=== PATIENT | female | born 2005 | race Caucasian/White ===

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

== ENCOUNTER 2023-07-07 17:06 | Outpatient (CLI) | payer MEDICAID, SELFPAY ==
[2023-07-07 17:37] VITALS: BP 128/80; PULSE 79; TEMP 36.8
[2023-07-07 17:41] VITALS: PULSE 76; O2SAT 99
[2023-07-07 17:43] VITALS: BMI 34.2
[2023-07-07 17:46] VITALS: PULSE 92; O2SAT 99
[2023-07-07 18:33] LABS: ROM Internal Control Test YES-OK TO RESULT pt. (Internal QC); ROM Patient Test Negative (Negative); Record Kit Lot#, ROM+ K1409
[2023-07-07 19:42] VITALS: BP 133/88; PULSE 88
[2023-07-07] MEDS: Acetaminophen 500 MG Tablet 1000 MG PO (20:31)
--- NOTE | 2023-07-13 02:12 | OB.TRI.NOTE ---
HPI - General General Date of Service: 07/07/23 HPI Narrative GABY MAYA, is a 18 F who presents with ctxs. Maternal Data Information MITCHEL Calculator Estimated Delivery Date Method Current WG Current Estimate 07/12/23 Manual 40w 1d Gestational age: 39&2 PFSH PFSH Medical History (Updated 07/13/23 @ 02:[address] Jose Mercado MD) Anemia Anxiety Depression Family history of hearing loss at age younger than 7 years PTSD (post-traumatic stress disorder) Home Medications vit no.95-ferrous fumarate 28 mg-folic acid 800 mcg tablet 1 tab PO DAILY 07/08/23 [History Last Taken Unknown] acetaminophen 500 mg tablet 1,000 mg (2 x 500 mg) PO Q6H PRN PRN Pain 1-10 Or Fever #0 tabs 07/10/23 [Rx Last Taken Unknown] ibuprofen 600 mg tablet 600 mg PO Q6H PRN PRN Pain Score 1-3 #0 tabs 07/10/23 [Rx Last Taken Unknown] Allergy/AdvReac Type Severity Reaction Status Date / Time No Known Allergies Allergy Verified 07/08/23 06:02 Social History Smoking Status: Current every day smoker History 1 Elective abortions Hx Para 1 Spontaneous abortions Hx # Term Pregnancies Ectopic pregnancies Hx # Pregnancies Multiple births # of living children 1 NST FHR Rate Baby A Baseline: 120 Variability:: Moderate Accelerations:: 15 x 15 Decelerations:: Variable Uterine Activity:: Irregular but Q2 minutes at times Assessment & Plan (1) False labor: PLAN: Plan Reactive NST
== END 2023-07-07 21:43 | disposition home or self-care (01) ==
LOC: WPOUT 17:15 → WP 17:16
PROVIDERS: Visit Provider Obstetrics & Gynecology
DX: O47.9 False labor, unspecified (principal); Z3A.00 Weeks of gestation of pregnancy not specified
CPT/HCPCS: 59025; 59050 ×2; 84112; G0378 ×2; 99221

== ENCOUNTER 2023-07-08 06:08 | Inpatient (IN) | payer MEDICAID, SELFPAY ==
[2023-07-08] VITALS (69 sets, daily range): BP systolic 111–146; BP diastolic 55–92; PULSE 62–171; RESP 14–16; TEMP 36.4–37.3; O2SAT 87–100; BMI 34.2
[2023-07-08] MEDS: LACTATED RINGERS 500 ML 999 ML IV (06:27)
[2023-07-08 06:42] LABS: ROM Internal Control Test YES-OK TO RESULT pt. (Internal QC); ROM Patient Test Negative (Negative); Record Kit Lot#, ROM+ K1409
[2023-07-08] MEDS: fentaNYL 100 MCG/2 ML Ampul IV (06:43)
[2023-07-08 06:51] LABS: Absolute Lymphocyte Count 1.19 X10^3/uL (0.83-4.51); Absolute Neutrophil Count 11.8 X10^3/uL (2.0-7.7); Basophil# 0.03 X10^3/uL; Basophil% 0.2 % (0-1); Hematocrit 34.1 % (37-47); Hemoglobin 11.3 g/dL (12.0-15.0); Lymphocyte # 1.19 X10^3/ul (0.83-4.51); Lymphocyte % 8.4 % (19-41); Mean Corp Hgb Conc 33.1 g/dL (32-36); Mean Corpuscular Hgb 29.1 pg (27.0-32.0); Mean Corpuscular Volume 87.9 fL (81-99); Mean Platelet Vol. 11.5 fl (6.2-12.0); Monocyte# 0.95 X10^3/uL; Monocyte% 6.7 % (0-10); NRBC Flagged by Analyzer 0 % (0-5); Neutrophil # 11.84 X10^3/uL (2.7-7.7); Neutrophil % 84.1 % (47-70); Platelet Count 238 K/mm3 (150-450); RBC Distribution Width CV 12.8 % (11.6-14.6); RBC Distribution Width SD 40.1 fl (35.1-43.9); Red Blood Count 3.88 M/mm3 (4.2-5.4); White Blood Count 14.1 K/mm3 (4.4-11.0)
[2023-07-08] MEDS: Lactated Ringers 1,000 ML 200 ML IV ×2 (07:03→12:16)
[2023-07-08] MEDS: fentaNYL-bupivacaine (epidural) 100 ML BAG EPIDURAL ×2 (07:29→12:17)
[2023-07-08 08:00] LABS: Syphilis Antibodies Non-reactive
[2023-07-08 08:21] LABS: Amphetamine Urine VISTA NEGATIVE (<1000 ng/mL); Barbiturate Urine VISTA NEGATIVE (< 200 ng/mL); Benzodiazepine Urine VISTA NEGATIVE (< 200 ng/mL); Cocaine Urine VISTA NEGATIVE (< 300 ng/mL); Ecstacy Urine VISTA NEGATIVE (< 500 ng/mL); Methadone Urine VISTA NEGATIVE (< 300 ng/mL); PCP Urine VISTA NEGATIVE (< 25 ng/mL); THC Urine VISTA POSITIVE (< 50 ng/mL); Vista UDS pH Range 5
--- NOTE | 2023-07-08 08:38 | PCM.HP.OB ---
HPI - General General Date of Admission: 07/08/23 HPI Narrative GABY MAYA, is a 18 F at 39.3 weeks gestation who presents with spontaneous onset of labor. Denies any loss of fluid or vaginal bleeding. Positive movement. Maternal Data Information MITCHEL Calculator Estimated Delivery Date Method Current WG Current Estimate 07/12/23 Manual 39w 3d PFSH PFSH Medical History (Updated 07/08/23 @ 08:41 by Shelly Bolivar CNM) Anemia Anxiety Depression Family history of hearing loss at age younger than 7 years PTSD (post-traumatic stress disorder) Home Medications naproxen 500 mg tablet 500 mg PO BID #20 tabs 03/27/18 [Rx Last Taken Unknown] famotidine 20 mg tablet (Pepcid) 20 mg PO DAILY 07/08/23 [History Last Taken 07/06/23] vit no.95-ferrous fumarate 28 mg-folic acid 800 mcg tablet 1 tab PO DAILY 07/08/23 [History Last Taken Unknown] Allergy/AdvReac Type Severity Reaction Status Date / Time No Known Allergies Allergy Verified 07/08/23 06:02 Social History Smoking Status: Current every day smoker ROS Eyes Eyes: Denies blurry vision, change in vision or spots in vision ENT HEENT: Denies dizziness or headache(s) Cardiovascular Cardiovascular: Denies abdominal pain, chest pain or dyspnea Respiratory/Chest Respiratory/Chest: Denies cough, dyspnea, shortness of breath at rest or shortness of breath with exertion Gastrointestinal Gastrointestinal: Denies abdominal pain, diarrhea or vomiting Genitourinary Genitourinary: Denies change in urinary stream, difficulty urinating or dysuria Musculoskeletal Musculoskeletal: Reports none Integumentary Integumentary: Denies rash Neurologic Neurologic: Denies dizziness, headache(s), memory loss or weakness Psychiatric Psychiatric: Reports none Vital Signs Vital Signs Vital Signs: 07/08/23 06:19 07/08/23 06:19 07/08/23 06:20 Temperature 99.1 F Temperature Source Temporal Pulse Rate Blood Pressure 122/65 H BP Systolic 122 BP Diastolic 65 Pulse Ox 07/08/23 06:20 07/08/23 06:20 07/08/23 07:19 Temperature Temperature Source Pulse Rate 74 Blood Pressure 139/83 H BP Systolic 139 BP Diastolic 83 Pulse Ox 99 07/08/23 07:19 07/08/23 07:20 07/08/23 07:20 Temperature Temperature Source Pulse Rate 76 85 Blood Pressure BP Systolic BP Diastolic Pulse Ox 100 07/08/23 07:25 07/08/23 07:25 07/08/23 07:26 Temperature Temperature Source Pulse Rate 81 Blood Pressure 146/84 H BP Systolic 146 BP Diastolic 84 Pulse Ox 99 07/08/23 07:26 07/08/23 07:28 07/08/23 07:28 Temperature Temperature Source Pulse Rate 103 H 108 H Blood Pressure BP Systolic BP Diastolic Pulse Ox 94 07/08/23 07:29 07/08/23 07:29 07/08/23 07:30 Temperature Temperature Source Pulse Rate 108 H 117 H Blood Pressure 133/77 H BP Systolic 133 BP Diastolic 77 Pulse Ox 07/08/23 07:30 07/08/23 07:34 07/08/23 07:34 Temperature Temperature Source Pulse Rate 114 H Blood Pressure 129/69 H BP Systolic 129 BP Diastolic 69 Pulse Ox 100 07/08/23 07:35 07/08/23 07:35 07/08/23 07:40 Temperature Temperature Source Pulse Rate 145 H Blood Pressure 128/79 H BP Systolic 128 BP Diastolic 79 Pulse Ox 99 07/08/23 07:40 07/08/23 07:40 07/08/23 07:40 Temperature Temperature Source Pulse Rate 134 H 92 Blood Pressure BP Systolic BP Diastolic Pulse Ox 99 07/08/23 07:45 07/08/23 07:45 07/08/23 07:45 Temperature Temperature Source Pulse Rate 153 H 113 H Blood Pressure 125/70 H BP Systolic 125 BP Diastolic 70 Pulse Ox 07/08/23 07:45 07/08/23 07:49 07/08/23 07:49 Temperature Temperature Source Pulse Rate 127 H Blood Pressure 127/92 H BP Systolic 127 BP Diastolic 92 Pulse Ox 100 07/08/23 07:50 07/08/23 07:50 07/08/23 07:54 Temperature Temperature Source Pulse Rate 136 H Blood Pressure 127/88 H BP Systolic 127 BP Diastolic 88 Pulse Ox 100 07/08/23 07:54 07/08/23 07:45 07/08/23 07:55 Temperature 98.2 F Temperature Source Pulse Rate 106 H 124 H Blood Pressure BP Systolic BP Diastolic Pulse Ox 07/08/23 07:55 07/08/23 08:00 07/08/23 08:00 Temperature Temperature Source Pulse Rate 116 H Blood Pressure 131/75 H BP Systolic 131 BP Diastolic 75 Pulse Ox 99 07/08/23 08:03 07/08/23 08:03 Temperature Temperature Source Pulse Rate 62 Blood Pressure BP Systolic BP Diastolic Pulse Ox 100 Weight Weight: 193 lb 4.8 oz Body Mass Index (BMI) 34.2 Physical Exam Const alert, oriented x3 and no apparent distress General Appearance: cooperative Orientation / Consciousness: awake Exam Limitations: no limitations HEENT normocephalic Head and Scalp: normal to inspection Eyes General Eye: normal appearance of both eyes Neck full ROM and no lymphadenopathy Lymph Lymphatic: no lymphadenopathy noted Chest inspection of chest normal Resp normal respiratory effort, normal air movement and clear to auscultation bilaterally Effort and Inspection: able to speak in complete sentences and symmetric chest movement Cardio regular rate and regular rhythm GI normal to inspection, nondistended, normoactive bowel sounds Manual OB Exam: presentation cephalic Back/Spine normal ROM Extremity full ROM and no calf tenderness Skin no rashes or lesions noted General Skin Exam: no breakdown Neuro oriented x3 and CN's II-XII intact bilaterally Psych mental status grossly normal and thought process normal Labs Labs Labs: Blood Type O POSITIVE Antibody Screen NEGATIVE Hct 34.1 % (37-47) L Hgb 11.3 g/dL (12.0-15.0) L Syphilis Total Ab Non-reactive Assessment & Plan (1) 39 weeks gestation of : (2) Spontaneous onset of labor: (3) History of depression: (4) Anxiety: COMMENT: severe per pt (5) Anemia: COMMENT: took iron as needed prior to during periods (6) Nicotine vapor product user: PLAN: Plan Admit to labor and delivery Routine labs GBS negative Epidural when indicated Start Pitocin 2 mu/min and increase per policy Anticipate Dr. Sharif aware of admission and is collaborating physician
--- NOTE | 2023-07-08 13:59 | OP.PCM_ITS ---
Maternal Data Information MITCHEL Calculator Estimated Delivery Date Method Current WG Current Estimate 07/12/23 Manual 39w 3d Final MITCHEL: 07/12/23 Vaginal Delivery Maternal Presentation Maternal Presentation: Active Labor Operative Information Date of Procedure: 07/08/23 Pre-Operative Diagnosis: labor Post-Operative Diagnosis: same Surgery / Procedure Performed: Spontaneous Vaginal Delivery Type of Anesthesia: Epidural Special Medications: none Drain: - (none) Estimated Blood Loss: 300 Time of Delivery: 14:12 Findings Description of Procedure: A vigorous male infant was delivered DEE over a second-degree perineal laceration. The remainder the infant was delivered with maternal pushing and gentle traction only in less than 15 seconds. The Pitocin infusion was initiated for active management of the third stage. The cord was clamped and cut after 1 minute. The was attended to by the waiting nursing staff. The placenta was delivered spontaneously and intact. The cervix and vagina were intact. The second-degree perineal laceration was repaired with 2-0 Vicryl suture in a running standard fashion. Sponge and needle counts were correct. A vaginal sweep was completed by me. Presentation: Vertex Amniotic Membrane Rupture Type: Artificial Amniotic Fluid Description: Clear Placental Delivery Description: Spontaneous Placenta Disposition: [facility] Cord Vessel Description: 3 Vessels Cord Entanglement: None Infant A Gender: Male (Archmegan, Martin) (1 minute): 7 (5 minute): 8 Delayed Cord Clamping: Yes Post Vaginal Delivery Medications Given After Delivery: IV Pitocin and IM Pitocin Episiotomy Description: None Laceration: 2nd degree Complication Complications: None
[2023-07-08] MEDS: Oxytocin 10 UNITS/ML Vial IM (14:15)
[2023-07-08] MEDS: Oxytocin 15 Units/NS 250ml 15 UNITS/250 ML IV.SOLN 83 UNITS IV (14:30)
[2023-07-08] MEDS: Ibuprofen 600 MG Tablet PO (23:19)
[2023-07-09] VITALS (10 sets, daily range): BP systolic 116–135; BP diastolic 58–83; PULSE 70–90; RESP 16–17; TEMP 36.3–36.7; O2SAT 98
[2023-07-09] MEDS: Ibuprofen 600 MG Tablet PO ×3 (05:29→17:05)
[2023-07-09 05:58] LABS: Hemoglobin 10.3 g/dL (12.0-15.0); Mean Corp Hgb Conc 32.2 g/dL (32-36); Mean Corpuscular Hgb 28.9 pg (27.0-32.0); Mean Corpuscular Volume 89.6 fL (81-99); Platelet Count 191 K/mm3 (150-450); RBC Distribution Width CV 13.1 % (11.6-14.6); RBC Distribution Width SD 42.5 fl (35.1-43.9); Red Blood Count 3.57 M/mm3 (4.2-5.4); White Blood Count 13.5 K/mm3 (4.4-11.0)
[2023-07-09] MEDS: Acetaminophen 500 MG Tablet 1000 MG PO ×3 (08:05→20:52)
--- NOTE | 2023-07-09 08:47 | PCM.PN.OB ---
Subjective Subjective Patient seen at bedside. Feeling good. Denies any pain. Ambulating and voiding without difficulty. Lochia decreasing. Objective Data Objective Data Vital Signs: Vital Signs Temp Pulse Resp BP Pulse Ox O2 Del Method 97.9 F 71 17 121/71 H 98 Room Air 07/09/23 08:00 07/09/23 08:00 07/09/23 08:00 07/09/23 08:00 07/08/23 16:17 07/09/23 08:00 Oxygen Delivery Method Room Air Weight: 193 lb 4.8 oz Body Mass Index (BMI) 34.2 Intake & Output: Intake and Output for Last 24 Hours 07/07/23 07/08/23 07/09/23 23:59 23:59 23:59 Intake Total 2750 / 2750 Output Total 1650 / 1650 Balance 1100 / 1100 Lab / Micro Data 07/09/23 05:50 Labs: Laboratory Results - last 24 hr 07/09/23 05:50: WBC 13.5 H, RBC 3.57 L, Hgb 10.3 L, Hct 32.0 L, MCV 89.6, MCH 28.9, MCHC 32.2, RDW Std Deviation 42.5, RDW Coeff of Beryl 13.1, Plt Count 191, MPV 11.0 Physical Exam Const alert and no apparent distress General Appearance: cooperative and comfortable Exam Limitations: no limitations HEENT normocephalic Eyes General Eye: normal appearance of both eyes Neck full ROM General: normal visual inspection Chest Chest: symmetrical chest wall rise Resp normal respiratory effort and normal air movement Effort and Inspection: symmetric chest movement Auscultation: clear to auscultation bilaterally Cardio regular rate and regular rhythm GI normal to inspection, nondistended, normoactive bowel sounds Back/Spine normal ROM Extremity full ROM and no calf tenderness General Extremity: normal exam except as noted Skin no rashes or lesions noted Neuro CN's II-XII intact bilaterally Psych mental status grossly normal Assessment & Plan (1) (spontaneous vaginal delivery): (2) Laceration, obstetrical, second degree: (3) Care and examination of lactating mother: PLAN: Plan PPD 1 Routine care support Increase ambulation Anticipate discharge home tomorrow
--- NOTE | 2023-07-09 17:00 | CASEMGMT ---
Social Work Assessment Labor and Delivery Unit Patient Address: [address] [place] [address] Phone number: [phone] Date of Referral: 07/08/2023 Time of Referral:? 7:04 Referred By: Jose Date of Intervention: ?07/09/2023 Time of Intervention:? 17:00 Reason for Referral:? Marijuana use History obtained from: medical records and mother of baby (MOB) and FOB Household composition: MOB resides with her mother Sofiya Pearl, stepfather, and siblings. ?FOB ? Leonardo Tellez resides with his mother. Patient's parent/guardian status: MOB and FOB have know each other for many years but together for approx. 2 years. Parents plan to coparent with the assistance of the grandparents. FOB reports he is a full-time student at [employer]. Medical History: MOB received adequate care. Baby Byron Taylor is first child, 3329 grams and 8/9 apgars. Educational Status: No literacy concerns Financial Status: No financial concerns Infant Supplies: Parents report having all necessary supplies and equipment Childcare/Caregiver(s):? MOB and maternal grandmother plan to be main caregivers. Transportation:? No concerns Programs/Agencies Involved: ??[facility], [facility] Children Services/Legal Issues:??? None Behavioral Health Issues: ?? Mental Health History: MOB reports history of anxiety, PTSD and depression. Pt reports she has a counselor and is willing to see her as needed. Substance Use History: MOB has past marijuana use and reports delta 8 use during that she informed physician of. MOB reports vaping delta 8 helped with her anxiety. Family History: Denies??? Drug Screens: ?Positive for THC(MOB and baby), denies marijuana use but up front about delta-8 use. Family/Social Stressors:? MOB and FOB report some concerns with paternal grandparents and not respecting their wishes. Support Systems: Grandparents are involved and supportive Depression: Education provided and parents receptive Shaken Baby: Education provided and parents receptive Safe Sleeping: Education provided and parents receptive ASSESSMENT: MOB and FOB appropriate. MOB and FOB ask insightful questions and are eager to learn. Parents have some concerns about paternal family being invasive and not following requests. SW reviewed setting healthy boundaries and ways to kindly set and enforce boundaries. MOB open and honest regarding past marijuana use and reports stopping when she learned she was . MOB reports using delta-8 during and that doctor was aware. MOB expressed concerns regarding this use being an issue and unawareness that it could be an issue. Delta-8 can show up positive with THC. SW explained a children services report may be made due to this use as MOB and baby tested positive. No other immediate concerns or needs at this time.? PLAN: Consult with groundskeeper supervisor regarding children services report. Pt to discharge home with parents, no concerns at this time. Asha Healy GRAIN BLENDER, COMPRESSOR HOUSE OPERATOR
[2023-07-10] MEDS: Ibuprofen 600 MG Tablet PO ×2 (00:04→10:19)
[2023-07-10 02:13] VITALS: BP 107/61; PULSE 56; O2SAT 99
[2023-07-10 02:18] VITALS: BP 107/61; PULSE 65; RESP 16; TEMP 36.6; O2SAT 98
[2023-07-10] MEDS: Acetaminophen 500 MG Tablet 1000 MG PO (06:55)
--- NOTE | 2023-07-10 07:48 | PCM.DC.SUM ---
Providers Date of Admission: 07/08/23 Primary Care Physician: No Primary Care Phys Reason For Visit: VAGINAL DELIVERY Diagnosis Discharge Diagnosis (1) (spontaneous vaginal delivery): Status: Acute Code(s): O80 - Encounter for full-term uncomplicated delivery (2) Laceration, obstetrical, second degree: Status: Acute Code(s): O70.1 - Second degree perineal laceration during delivery (3) Care and examination of lactating mother: Status: Acute Code(s): Z39.1 - Encounter for care and examination of lactating mother Plan PPD 2 Routine care support Medications at Discharge Home Medications vit no.95-ferrous fumarate 28 mg-folic acid 800 mcg tablet 1 tab PO DAILY 07/08/23 acetaminophen 500 mg tablet 1,000 mg (2 x 500 mg) PO Q6H PRN PRN Pain 1-10 Or Fever #0 tabs 07/10/23 ibuprofen 600 mg tablet 600 mg PO Q6H PRN PRN Pain Score 1-3 #0 tabs 07/10/23 Hospital Course Operations None () Summary of Care Provided Minutes Spent on Discharge: 20 Hospital Course: Patient had . Hospital course was uneventful. Physical Exam Const alert and no apparent distress General Appearance: cooperative and comfortable Exam Limitations: no limitations HEENT normocephalic Eyes General Eye: normal appearance of both eyes Neck full ROM General: normal visual inspection Chest Chest: symmetrical chest wall rise Resp normal respiratory effort and normal air movement Effort and Inspection: symmetric chest movement Auscultation: clear to auscultation bilaterally Cardio regular rate and regular rhythm GI normal to inspection, nondistended, normoactive bowel sounds Back/Spine normal ROM Extremity full ROM and no calf tenderness General Extremity: normal exam except as noted Skin no rashes or lesions noted Neuro CN's II-XII intact bilaterally Psych mental status grossly normal Weight / BMI Weight Weight: 193 lb 4.8 oz Body Mass Index (BMI) 34.2 ABG / Lab / Microbiology Data 07/09/23 05:50 D/C Instructions Discharge Diet: No restrictions Discharge Activity: Return to Normal Activity, May Shower and May Take a Tub Bath May resume sexual activity in: 4-6 weeks Weight Bearing Status: Weight bearing as tolerated Call your doctor if you observe: Fever of 101 or Higher, Inability to urinate, Using more than 1 pad per hour, Shortness of breath, Dizziness, Swelling in the ankles, Chest pain, Calf discomfort and Uncontrolled pain Please Follow Up With: Shelly Bolivar CNM When: Within 14 days Meaningful Use Info Meaningful Use Diagnoses (Choose all that apply): None applicable Discharge Plan Admission Admit Date/Time: 07/08/23 06:08 Primary Reason for Your Visit: Labor and Delivery Attending Provider: Guera Esqueda Primary Care Provider: Care Physician,Heidi Primary Discharge Orders/Prescriptions Prescriptions: New ibuprofen 600 mg Tablet 600 mg PO Q6H PRN PRN (Reason: Pain Score 1-3) Qty: 0 0RF acetaminophen 500 mg Tablet 1,000 mg PO Q6H PRN PRN (Reason: Pain 1-10 Or Fever) Qty: 0 0RF Continued PNV cmb#95-ferrous fumarate-FA 28 mg iron- 800 mcg tablet 1 tab PO DAILY Discontinued naproxen 500 MG tablet 500 mg PO BID Qty: 20 0RF famotidine [Pepcid] 20 mg tablet 20 mg PO DAILY Referrals / Follow Up: Care Physician,No Primary [Primary Care Provider] - Disposition Disposition (needs filled in before D/C Order can be placed): Home, Self Care
[2023-07-10 09:11] VITALS: BP 129/66; PULSE 75; RESP 16; TEMP 36.1
[2023-07-10 09:13] VITALS: BP 129/66; PULSE 75
== END 2023-07-10 12:55 | disposition home or self-care (01) | DRG 560 ==
LOC: WPOUT 06:09 → WP 06:09
PROVIDERS: Obstetrics & Gynecology; Admitting Provider Obstetrics & Gynecology; Visit Provider Obstetrics & Gynecology
DX: O99.02 Anemia complicating childbirth (principal); Z37.0 Single live birth; O99.344 Other mental disorders complicating childbirth; D50.0 Iron deficiency anemia secondary to blood loss (chronic); F41.9 Anxiety disorder, unspecified; F17.290 Nicotine dependence, other tobacco product, uncomplicated; O70.1 Second degree perineal laceration during delivery; O99.334 Smoking (tobacco) complicating childbirth; Z3A.39 39 weeks gestation of pregnancy
CPT/HCPCS: 59025; 59050; 80307; 84112; 85025; 85027; 86780; 86850; 86900; 86901; 99221; J7120; G0378

== ENCOUNTER 2024-02-23 23:26 | Emergency (ER) | payer MEDICAID, SELFPAY ==
[2024-02-23 23:26] VITALS: BP 151/91; PULSE 90; RESP 18; TEMP 36.4; O2SAT 100; BMI 31.6
--- NOTE | 2024-02-23 23:50 | EX.ED.DYSGE1 ---
HPI History of Present Illness Chief Complaint: Bite Informant: patient Onset/Context/Timing Onset: Days Context: Gradual Onset Narrative Narrative: Patient presents secondary to a bite injury over her left shoulder blade. She was [place] 3 days ago. She felt a pinch on her left shoulder blade and now has a wound to the area. She has not noted any drainage. [facility] Medical History Care and examination of lactating mother Laceration, obstetrical, second degree (spontaneous vaginal delivery) Nicotine vapor product user History of depression Anemia Family history of hearing loss at age younger than 7 years PTSD (post-traumatic stress disorder) Depression Anxiety Home Medications ?Medication ?Instructions ?Recorded ?Last Taken ?Type vit no.95-ferrous 1 tab PO DAILY 07/08/23 Unknown History fumarate 28 mg-folic acid 800 mcg tablet acetaminophen 500 mg tablet 1,000 mg (2 x 500 mg) PO Q6H PRN 07/10/23 Unknown Rx PRN Pain 1-10 Or Fever #0 tabs ibuprofen 600 mg tablet 600 mg PO Q6H PRN PRN Pain Score 07/10/23 Unknown Rx 1-3 #0 tabs cephalexin 500 mg capsule 500 mg PO Q6 #40 CAPSULES 02/23/24 Unknown Rx Allergy/AdvReac Type Severity Reaction Status Date / Time No Known Allergies Allergy Verified 02/23/24 23:27 Social History Smoking Status: Current every day smoker ROS ROS ED Constitutional Constitutional ED: Denies chills or fever(s) Eyes Eyes: Denies discharge from eye(s) ENT ENT ED: Denies discharge from eye(s) or rhinorrhea Cardiovascular Cardiovascular: Denies chest pain Respiratory/Chest Respiratory/Chest: Denies cough or dyspnea Gastrointestinal Gastrointestinal: Denies abdominal pain or vomiting Musculoskeletal Musculoskeletal: Denies back pain or extremity pain Integumentary Reports abscess; Denies Abrasions or rash Neurologic Neurologic: Denies headache(s) or weakness Psychiatric Psychiatric: Denies anxiety or depression Allergic/Immunologic Allergic/Immunologic ED: Denies lip swelling or urticaria EXAM Physical Exam Const Vital Signs: 02/23/24 23:26 02/24/24 00:04 Temperature 97.5 F L 97.5 F L Temperature Source Temporal Pulse Rate 90 13 L Respiratory Rate 18 18 Blood Pressure 151/91 H 151/91 H Blood Pressure Mean 111 111 Pulse Ox 100 100 Oxygen Delivery Method Room Air Positive well nourished and well developed General Appearance ED: well developed HEENT Reports moist mucous membranes Eyes EOMs intact bilaterally Chest Wall inspection of chest normal Resp normal respiratory effort Back/Spine Back/Spine Narrative: 2 x 1 cm cutaneous abscess over the left scapula. Area is getting chronic irritation from her bra line. No focal fluctuance. No spontaneous drainage. Area is firm and indurated. Neuro oriented x3 and no sensory deficits noted Motor Exam: strength 5/5 throughout Psych mental status grossly normal MDM MDM MDM Narrative Medical decision making narrative: Wound is cleansed. Antibiotic ointment is placed along with a dressing to help protect from the chronic clothing irritation. Patient be treated with a course of Keflex, first dose given here. Patient referred to local PCP to establish primary care. Return instructions given. Discharge Plan Triage Chief Complaint: Bite ED Provider: Eliana Main Dx/Rx/DC Orders Clinical Impression: Cutaneous abscess Instructions: ED Abscess Antibiotic Treatment Only Prescriptions: New cephalexin 500 mg capsule 500 mg PO Q6 Qty: 40 0RF No Action PNV cmb#95-ferrous fumarate-FA 28 mg iron- 800 mcg tablet 1 tab PO DAILY ibuprofen 600 mg Tablet 600 mg PO Q6H PRN PRN (Reason: Pain Score 1-3) Qty: 0 0RF acetaminophen 500 mg Tablet 1,000 mg PO Q6H PRN PRN (Reason: Pain 1-10 Or Fever) Qty: 0 0RF Primary Care Provider: Care Physician,No Primary Referrals: Edith Acevedo MD [Med Staff - Fixed Interest Dealer] - As Needed Care Physician,No Primary [Primary Care Provider] - Print Language: Slovenian Disposition Disposition: Home, Self Care Discharge Date/Time: 02/24/24 00:05
[2024-02-24] MEDS: Cephalexin 250 MG Capsule 500 MG PO (00:03)
[2024-02-24 00:04] VITALS: BP 151/91; PULSE 13; RESP 18; TEMP 36.4; O2SAT 100
== END 2024-02-24 00:05 | disposition home or self-care (01) ==
LOC: ED 02-24 00:02
PROVIDERS: Emergency Provider Emergency Medicine; Visit Provider Emergency Medicine
DX: L02.818 Cutaneous abscess of other sites (principal); F17.200 Nicotine dependence, unspecified, uncomplicated
CPT/HCPCS: 99283

== ENCOUNTER 2024-02-25 20:54 | Emergency (ER) | payer MEDICAID, SELFPAY ==
[2024-02-25 20:56] VITALS: BP 112/71; PULSE 121; RESP 18; TEMP 37.8; O2SAT 98; BMI 30.4
[2024-02-25 20:59] VITALS: BP 115/79; PULSE 96; RESP 18; TEMP 37.2; O2SAT 96
[2024-02-25] MEDS: 0.9% Normal Saline (1000mL) 1,000 ML 999 ML IV (21:28)
[2024-02-25 21:36] LABS: Absolute Lymphocyte Count 0.92 X10^3/uL (0.83-4.51); Absolute Neutrophil Count 6.1 X10^3/uL (2.0-7.7); Basophil# 0.03 X10^3/uL; Basophil% 0.4 % (0-1); Eosinophil# 0.01 X10^3/uL; Eosinophils% 0.1 % (0-5); Hematocrit 39.7 % (37-47); Hemoglobin 13.6 g/dL (12.0-15.0); Lymphocyte # 0.92 X10^3/ul (0.83-4.51); Lymphocyte % 11.6 % (19-41); Mean Corp Hgb Conc 34.3 g/dL (32-36); Mean Corpuscular Hgb 29.6 pg (27.0-32.0); Mean Corpuscular Volume 86.3 fL (81-99); Mean Platelet Vol. 10.8 fl (6.2-12.0); Monocyte# 0.81 X10^3/uL; Monocyte% 10.3 % (0-10); NRBC Flagged by Analyzer 0 % (0-5); Neutrophil % 77.2 % (47-70); Platelet Count 141 K/mm3 (150-450); RBC Distribution Width CV 13.7 % (11.6-14.6); RBC Distribution Width SD 43.3 fl (35.1-43.9); White Blood Count 7.9 K/mm3 (4.4-11.0)
[2024-02-25] MEDS: Ondansetron 4 MG/2 ML Vial IV (21:38)
--- NOTE | 2024-02-25 21:42 | EX.ED.DYSGE1 ---
HPI <ROBBY Rizo - Last Filed: 02/25/24 22:03> History of Present Illness Chief Complaint: Bite Narrative Narrative: Patient presenting today with concerns for worsening cellulitis to her left shoulder blade. She reports that on Tuesday she was [place] [facility] [place] when she felt a bug bite her back, she noticed erythema to the area and did present to the emergency department on 02/23/2024 and was treated for cellulitis with Keflex which she is still taking. She does report that since yesterday she has had multiple episodes of nausea and vomiting and has concerns that she is not keeping the antibiotic down. She noticed that the cellulitis has worsened. She has felt feverish but is unsure if she has had a fever. She reports generalized abdominal cramping. She denies hematemesis, urinary symptoms, and diarrhea. She denies a PMH of any chronic health conditions, she is not immunocompromise, no history of diabetes. PFS <ROBBY Rizo - Last Filed: 02/25/24 22:03> [facility] Medical History Care and examination of lactating mother Laceration, obstetrical, second degree (spontaneous vaginal delivery) Nicotine vapor product user History of depression Anemia Family history of hearing loss at age younger than 7 years PTSD (post-traumatic stress disorder) Depression Anxiety Home Medications ?Medication ?Instructions ?Recorded ?Last Taken ?Type acetaminophen 500 mg tablet 1,000 mg (2 x 500 mg) PO Q6H PRN 07/10/23 Unknown Rx PRN Pain 1-10 Or Fever #0 tabs ibuprofen 600 mg tablet 600 mg PO Q6H PRN PRN Pain Score 07/10/23 Unknown Rx 1-3 #0 tabs cephalexin 500 mg capsule 500 mg PO Q6 #40 CAPSULES 02/23/24 Unknown Rx doxycycline hyclate 100 mg tablet 100 mg PO BID #14 tabs 02/26/24 Unknown Rx ondansetron 4 mg disintegrating 4 mg PO Q8H PRN PRN Nausea #10 tabs 02/26/24 Unknown Rx tablet Allergy/AdvReac Type Severity Reaction Status Date / Time No Known Allergies Allergy Verified 02/25/24 20:59 Social History Smoking Status: Current every day smoker tobacco type: cigarettes ROS <ROBBY Rizo - Last Filed: 02/25/24 22:03> ROS ED Constitutional Constitutional ED: Reports chills, fever(s) and subjective Cardiovascular Cardiovascular: Denies chest pain Respiratory/Chest Respiratory/Chest: Denies cough or dyspnea Gastrointestinal Gastrointestinal: Reports abdominal pain, nausea and vomiting; Denies diarrhea Genitourinary Genitourinary ED: Denies dysuria, hematuria or urinary urgency Musculoskeletal Musculoskeletal: Denies arthralgias or myalgias Integumentary Reports other Details: Cellulitis ; Denies rash Neurologic Neurologic: Denies weakness EXAM <ROBBY Rizo - Last Filed: 02/25/24 22:03> Physical Exam Const Vital Signs: 02/25/24 20:56 02/25/24 20:59 02/25/24 21:59 Temperature 100.1 F H 99.0 F 97.3 F L Temperature Source Oral Oral Temporal Pulse Rate 121 H 96 97 Respiratory Rate 18 18 16 Blood Pressure 112/71 115/79 113/65 Blood Pressure Mean 84 91 81 Pulse Ox 98 96 96 Oxygen Delivery Method Room Air Room Air Room Air 02/25/24 22:00 02/25/24 22:55 02/25/24 23:00 Temperature 97.3 F L 96.5 F L Temperature Source Temporal Temporal Pulse Rate 86 78 75 Respiratory Rate 15 16 18 Blood Pressure 125/76 H 128/80 H 121/84 H Blood Pressure Mean 92 96 96 Pulse Ox 97 97 97 Oxygen Delivery Method Room Air Room Air Room Air 02/26/24 00:00 02/26/24 00:00 Temperature 97.6 F L Temperature Source Oral Pulse Rate 89 91 Respiratory Rate 16 16 Blood Pressure 117/74 117/74 Blood Pressure Mean 88 88 Pulse Ox 94 95 Oxygen Delivery Method Room Air Room Air Positive well nourished, well developed and no apparent distress General Appearance ED: well developed HEENT Reports normocephalic and head/scalp atraumatic Mouth ED: Yes moist mucous membranes normal Eyes PERRL and EOMs intact bilaterally Neck full ROM and supple Chest Wall inspection of chest normal Resp normal respiratory effort and clear to auscultation bilaterally Cardio regular rate and regular rhythm GI soft to palpation, non-tender, non-distended and no masses Back/Spine normal ROM and normal to inspection Extremity normal to inspection and full ROM Neuro oriented x3, CN's II-XII intact bilaterally, moves all extremities, no focal motor deficits and no sensory deficits noted Sensorium / Orientation: awake and alert Psych mental status grossly normal and thought process normal Skin Skin Narrative: Circumferential area of erythema to the left scapula, no purulent discharge <Dr. Wade Higginbotham DO - Last Filed: 02/26/24 00:47> Physical Exam Const Vital Signs: 02/25/24 20:56 02/25/24 20:59 02/25/24 21:59 Temperature 100.1 F H 99.0 F 97.3 F L Temperature Source Oral Oral Temporal Pulse Rate 121 H 96 97 Respiratory Rate 18 18 16 Blood Pressure 112/71 115/79 113/65 Blood Pressure Mean 84 91 81 Pulse Ox 98 96 96 Oxygen Delivery Method Room Air Room Air Room Air 02/25/24 22:00 02/25/24 22:55 02/25/24 23:00 Temperature 97.3 F L 96.5 F L Temperature Source Temporal Temporal Pulse Rate 86 78 75 Respiratory Rate 15 16 18 Blood Pressure 125/76 H 128/80 H 121/84 H Blood Pressure Mean 92 96 96 Pulse Ox 97 97 97 Oxygen Delivery Method Room Air Room Air Room Air 02/26/24 00:00 02/26/24 00:00 Temperature 97.6 F L Temperature Source Oral Pulse Rate 89 91 Respiratory Rate 16 16 Blood Pressure 117/74 117/74 Blood Pressure Mean 88 88 Pulse Ox 94 95 Oxygen Delivery Method Room Air Room Air [facility] <ROBBY Rizo - Last Filed: 02/25/24 22:03> [facility] Narrative Medical decision making narrative: Patient presenting with concerns for worsening cellulitis to her left upper back that she has had over the last several days after being bit by a bug on Tuesday. She did start Keflex 2 days ago but has had multiple episodes of nausea and vomiting over the past 2 days and is unsure if she has been vomiting up the antibiotic. She did report generalized abdominal cramping, her abdomen is soft and nontender on exam. Initially patient is tachycardic and afebrile, her heart rate did improve. She was given IV fluids, Zofran, and Tylenol. Labs will be obtained. She will be treated with vancomycin. CBC is unremarkable, CMP shows bilirubin 1.2, AST 116, ALT 112, alkaline phosphatase 167. Lab Data Attestation: I reviewed the patient's lab results. Lab results narrative: CBC shows a platelet count of 141 Labs: Laboratory Results - last 24 hr 02/25/24 02/25/24 21:20 21:48 WBC 7.9 RBC 4.60 Hgb 13.6 Hct 39.7 MCV 86.3 MCH 29.6 MCHC 34.3 RDW Std Deviation 43.3 RDW Coeff of Beryl 13.7 Plt Count 141 L MPV 10.8 Immature Gran % (Auto) 0.400 Neut % (Auto) 77.2 H Lymph % (Auto) 11.6 L [place] % (Auto) 10.3 H Eos % (Auto) 0.1 Baso % (Auto) 0.4 Absolute Neuts (auto) 6.1 Absolute Lymphs (auto) 0.92 Nucleated RBC % 0 Sodium 132 L Potassium 3.4 L Chloride 101 Carbon Dioxide 22.0 Anion Gap 9 BUN 9 Creatinine 0.86 Estim Creat Clear Calc 106.20 Est GFR (MDRD) Af Amer 107 Est GFR (MDRD) Non-Af 88 BUN/Creatinine Ratio 10.4 Glucose 113 H Lactic Acid 1.1 Calcium 9.0 Total Bilirubin 1.20 H AST 116 H ALT 112 H Alkaline Phosphatase 167 H Total Protein 7.8 Albumin 3.5 Globulin 4.3 H Albumin/Globulin Ratio 0.8 L Lipase 37 Urine Test Negative <Dr. Wade Higginbotham, DO - Last Filed: 02/26/24 00:47> [facility] MDM Narrative Medical decision making narrative: Patient presenting with concerns for worsening cellulitis to her left upper back that she has had over the last several days after being bit by a bug on Tuesday. She did start Keflex 2 days ago but has had multiple episodes of nausea and vomiting over the past 2 days and is unsure if she has been vomiting up the antibiotic. She did report generalized abdominal cramping, her abdomen is soft and nontender on exam. Initially patient is tachycardic and afebrile, her heart rate did improve. She was given IV fluids, Zofran, and Tylenol. Labs will be obtained. She will be treated with vancomycin. CBC is unremarkable, CMP shows bilirubin 1.2, AST 116, ALT 112, alkaline phosphatase 167. ED attending note: I evaluated the patient in conjunction with the ANDRAE. I agree with his/her statements and above findings. I have personally performed a face to face assessment of the patient and have reviewed the ANDRAE Note. I performed a substantive portion of the visit including all aspects of the following. I personally saw the patient performed chart review, physical exam, reviewed labs, imaging (if obtained), and formulated a treatment and management plan. Exam with approximately 5 x 4 area of erythema to the left infra scapula region. No fluctuance induration or signs of crepitus or bullae. Labs were unremarkable for signs of leukocytosis, endorgan hypoperfusion with a negative lactate. Of note patient did have mild elevation in bilirubin as well as AST and ALT and alkaline phosphatase however had no jaundice or right upper quadrant tenderness to palpation to suggest hepatobiliary acute surgical pathology. Patient was treated with IV vancomycin and antibiotic was changed from Keflex to doxycycline for MRSA coverage and ongoing antimicrobial relief. Patient was able to tolerate p.o. antibiotics here. She is appropriate discharge home prescriptions for doxycycline and Zofran. This note was generated with [employer] dictation software. It may contain incorrect words, spelling, and punctuation that were not noted in review of the chart prior to signing. Lab Data Labs: Laboratory Results - last 24 hr 02/25/24 02/25/24 21:20 21:48 WBC 7.9 RBC 4.60 Hgb 13.6 Hct 39.7 MCV 86.3 MCH 29.6 MCHC 34.3 RDW Std Deviation 43.3 RDW Coeff of Beryl 13.7 Plt Count 141 L MPV 10.8 Immature Gran % (Auto) 0.400 Neut % (Auto) 77.2 H Lymph % (Auto) 11.6 L [place] % (Auto) 10.3 H Eos % (Auto) 0.1 Baso % (Auto) 0.4 Absolute Neuts (auto) 6.1 Absolute Lymphs (auto) 0.92 Nucleated RBC % 0 Sodium 132 L Potassium 3.4 L Chloride 101 Carbon Dioxide 22.0 Anion Gap 9 BUN 9 Creatinine 0.86 Estim Creat Clear Calc 106.20 Est GFR (MDRD) Af Amer 107 Est GFR (MDRD) Non-Af 88 BUN/Creatinine Ratio 10.4 Glucose 113 H Lactic Acid 1.1 Calcium 9.0 Total Bilirubin 1.20 H AST 116 H ALT 112 H Alkaline Phosphatase 167 H Total Protein 7.8 Albumin 3.5 Globulin 4.3 H Albumin/Globulin Ratio 0.8 L Lipase 37 Urine Test Negative Discharge Plan Triage Chief Complaint: Bite ED Midlevel Provider: Zenaida Neal ED Provider: Wade Higginbotham Dx/Rx/DC Orders Instructions: Cellulitis Prescriptions: New doxycycline hyclate 100 mg tablet 100 mg PO BID Qty: 14 0RF ondansetron 4 mg tablet,disintegrating 4 mg PO Q8H PRN PRN (Reason: Nausea) Qty: 10 0RF No Action ibuprofen 600 mg Tablet 600 mg PO Q6H PRN PRN (Reason: Pain Score 1-3) Qty: 0 0RF acetaminophen 500 mg Tablet 1,000 mg PO Q6H PRN PRN (Reason: Pain 1-10 Or Fever) Qty: 0 0RF cephalexin 500 mg capsule 500 mg PO Q6 Qty: 40 0RF Primary Care Provider: Care Physician,No Primary Referrals: Kartik Pringle MD [Med Staff - Active Staff] - Activity Restrictions/Additional Instructions: Thank you for trusting us with your care today! Your labs are reassuring. There is no signs of sepsis or distributed (severe) infection. Please take Tylenol (2 pills, 650 mg), ibuprofen (2 pills, 400 mg) every 6 hours as needed for pain and fever control. Please take Zofran as needed for nausea and vomiting. Please take doxycycline as prescribed. Please take antibiotics with food never on empty stomach. Please discontinue taking Keflex Please return to the emergency department if your symptoms change or worsen. Please follow with your primary care physician for further outpatient evaluation and management. Print Language: Croatian Disposition Disposition: Home, Self Care
[2024-02-25 21:48] LABS: ALB/GLOB Ratio 0.8 RATIO (0.9-2.4); AST(SGOT) 116 U/L (15-37); Alanine Aminotransfer ALT/SGPT 112 U/L (13-56); Albumin, Serum 3.5 g/dL (3.2-5.0); Alkaline Phosphatase 167 U/L (45-117); Anion Gap 9 (5-15); BUN 9 mg/dL (7-18); BUN/Creat Ratio 10.4 RATIO (10-20); Chloride 101 mmol/L (98-107); Creatinine, Serum 0.86 mg/dL (0.55-1.02); EST Glomerular Filtration Rate 88 mL/min (>60); Est Glom Filt Rate - Afr Amer 107 mL/min (>60); Globulin 4.3 g/dL (2.2-4.2); Glucose 113 mg/dL (74-106); Potassium 3.4 mmol/L (3.5-5.1); Protein, Total 7.8 g/dL (6.4-8.2); Sodium Level 132 mmol/L (136-145)
[2024-02-25] MEDS: Vancomycin HCl 1,250 MG in 0.9% Normal Saline (250mL Bag) 250 ML 167 MG IV (21:56)
[2024-02-25] MEDS: Acetaminophen 325 MG Tablet 650 MG PO (21:56)
[2024-02-25 21:59] VITALS: BP 113/65; PULSE 97; RESP 16; TEMP 36.3; O2SAT 96
[2024-02-25 21:59] LABS: Internal QC Validated? YES +Cl - CLEAR BKGD; Pregnancy, Urine Negative Negative
[2024-02-25 22:00] VITALS: BP 125/76; PULSE 86; RESP 15; TEMP 36.3; O2SAT 97
[2024-02-25 22:04] LABS: Lactic Acid 1.1 mmol/L (0.4-1.9)
[2024-02-25 22:19] LABS: Lipase 37 U/L (13-75)
[2024-02-25 22:55] VITALS: BP 128/80; PULSE 78; RESP 16; O2SAT 97
[2024-02-25 23:00] VITALS: BP 121/84; PULSE 75; RESP 18; TEMP 35.8; O2SAT 97
[2024-02-26] VITALS: BP 117/74; PULSE 89; PULSE 91; RESP 16; TEMP 36.4; O2SAT 94; O2SAT 95
[2024-02-26] MEDS: Doxycycline 100 MG CAPSULE PO (00:20)
[2024-02-26 00:54] VITALS: BP 109/73; PULSE 75; RESP 18; TEMP 36.6; O2SAT 968
== END 2024-02-26 00:55 | disposition home or self-care (01) ==
PROVIDERS: Physician Assistant; Emergency Provider Emergency Medicine; Visit Provider Emergency Medicine
DX: L03.114 Cellulitis of left upper limb (principal); F17.210 Nicotine dependence, cigarettes, uncomplicated
CPT/HCPCS: 80053; 81025; 83605; 83690; 85025; 96365; 96366; 96375; 96376; 99284; J7030; J7050; A4216; J2405